=== PATIENT | male | born 1995 | race Caucasian/White ===

== ENCOUNTER 2021-06-08 08:18 | Emergency (ER) | payer MEDICAID, SELFPAY ==
[2021-06-08 08:19] VITALS: BP 138/99; PULSE 98; RESP 16; TEMP 36.6; O2SAT 99; BMI 25.6
--- NOTE | 2021-06-08 08:24 | ED.RN ---
PT STATES HE WAS HOSPITALIZED IN 2017 AFTER ATTEMPTED SUICIDE. HAS NOT TAKEN ANY MEDICATIONS SINCE 2018. DOES NOT HAVE A PLAN OR WISH TO KILL HIMSELF BUT FEELS HOPELESS AND WANTS HELP WITH THE PANIC ATTACKS
--- NOTE | 2021-06-08 08:57 | EDS_ITS ---
HPI HPI - Psych History of Present Illness Chief Complaint: Mental Health Informant: patient Narrative Narrative: Patient is a 26-year-old male with history of depression and schizophrenia presenting with worsening anxiety/panic attacks. Patient states is going on for the past week. They seem to be triggered by stress at work. 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 Has been having panic attacks daily for the past 6 to 7 days that last for no more than an hour. He is normally able to call a friend and talk through them. Patient states when these episodes happen he feels queasy and like he is dry heaving. Patient states they happen either in the morning or in the evening time. He is worried he is going to have an episode at work. He notes has been off medication since 2018. He believes he used to be on Wellbutrin, trazodone and Adderall. He has an appointment to see the counseling center on Monday, 6 days from now. He denies any homicidal suicidal ideation. He states he does have some sensations of dread and hopelessness. He denies any auditory visual hallucinations. No other complaints at this time. Patient does live alone but feels that he has a good support network with his friends. PFSH PFS Home Medications hydroxyzine HCl 25 mg PO TID PRN #20 tab 06/08/21 [Rx Last Taken Unknown] Allergy/AdvReac Type Severity Reaction Status Date / Time codeine Allergy Anaphylaxis Verified 06/08/21 08:23 meperidine [From Demerol] AdvReac Vomiting Verified 06/08/21 08:23 Social History Smoking Status: Never smoker ROS ROS ED Constitutional Constitutional ED: Denies chills or fever(s) Eyes Eyes: Denies blurry vision or loss of vision ENT ENT ED: Denies rhinorrhea or sore throat Cardiovascular Cardiovascular: Denies chest pain or dizziness Respiratory/Chest Respiratory/Chest: Denies cough or dyspnea Gastrointestinal Gastrointestinal: Denies nausea or vomiting Genitourinary Genitourinary ED: Denies dysuria or hematuria Musculoskeletal Musculoskeletal: Denies arthralgias or myalgias Integumentary Denies rash or wounds Neurologic Neurologic: Denies focal weakness or headache(s) Psychiatric Psychiatric: Reports anxiety; Denies behavioral changes, depression, suicidal ideation or suicidal thoughts EXAM Physical Exam Const Vital Signs: 06/08/21 08:19 Temperature 97.9 F Temperature Source Temporal Pulse Rate 98 Respiratory Rate 16 Blood Pressure 138/99 H Blood Pressure Mean 112 Pulse Ox 99 Oxygen Delivery Method Room Air Positive well nourished and well developed General Appearance ED: well developed HEENT normocephalic and atraumatic Eyes PERRL and EOMs intact bilaterally Neck supple Resp normal respiratory effort and clear to auscultation bilaterally Cardio no murmurs Rate: regular rate Rhythm: regular rhythm Extremity normal to inspection General Extremety ED: Negative for edema General Extremity: Negative for edema Neuro oriented x3 Sensorium / Orientation: alert Motor Exam: muscle tone normal throughout Psych mental status grossly normal, thought process normal and cooperative Psych Narrative: Poor eye contact Appearance: grossly normal and well kempt Speech: normal speech Thought Content: normal thought content, No suicidality and No homicidality Memory / Cognition: memory grossly intact and cognition grossly intact Insight: insight good Judgement: judgement good Skin Lesions: no lesions Rashes: no rashes MDM MDM MDM Narrative Medical decision making narrative: Patient is a with 1 week of panic attacks. He has had increased stressors at work and his anxiety seems to be centered around that. He does have a psychiatric history is currently off medications. He already has appointment to follow with counseling center. He denies any homicidal or suicidal ideations. I do not think he requires emergent psychiatric evaluation. Patient is given a prescription for hydroxyzine to help with his symptoms. He is given return precautions. Patient feels safe going home. He is given a work note for tonight per his request. Discharge Plan Triage Chief Complaint: Mental Health ED Provider: Dorys Dan Dx/Rx/DC Orders Clinical Impression: Anxiety attack Instructions: ED Panic Attack Prescriptions: New hydroxyzine HCl 25 mg tablet 25 mg PO TID PRN (Reason: anxiety) Qty: 20 RF: 0 Primary Care Provider: Care Physician,No Primary Referrals: Counseling,Center [GROUP OF PHYSICIANS] - Marsha Bronson MD [NON-STAFF] - Disposition Disposition: Home, Self Care
== END 2021-06-08 09:16 | disposition home or self-care (01) ==
LOC: ED 09:09
PROVIDERS: Emergency Provider Emergency Medicine; Visit Provider Emergency Medicine
DX: F41.0 Panic disorder [episodic paroxysmal anxiety] (principal)
CPT/HCPCS: 99282